=== PATIENT | female | born 1970 | race Caucasian/White ===

== ENCOUNTER 2023-06-22 08:56 | Outpatient (RCR) | payer BC, SELFPAY | END 2023-06-22 23:59 | disposition home or self-care (01) | LOC: RPT 08:56 | PROVIDERS: ATTENDING PHYSICIAN Orthopaedic Surgery; FAMILY PHYSICIAN Nurse Practitioner | DX: Z47.1 Aftercare following joint replacement surgery (principal); Z96.642 Presence of left artificial hip joint; Z73.6 Limitation of activities due to disability | CPT/HCPCS: 97110; 97112; 97140; 97161 ==

== ENCOUNTER 2023-07-24 15:52 | Outpatient (RCR) | payer BC, SELFPAY | END 2023-07-24 23:59 | disposition home or self-care (01) | LOC: RPT 15:52 | PROVIDERS: ATTENDING PHYSICIAN Orthopaedic Surgery; FAMILY PHYSICIAN Nurse Practitioner | DX: Z47.1 Aftercare following joint replacement surgery (principal); Z73.6 Limitation of activities due to disability; R26.89 Other abnormalities of gait and mobility; M62.81 Muscle weakness (generalized); M25.552 Pain in left hip; R25.2 Cramp and spasm; Z96.642 Presence of left artificial hip joint | CPT/HCPCS: 97110; 97112; 97140 ==

== ENCOUNTER 2023-08-23 14:57 | Outpatient (RCR) | payer BC, SELFPAY | END 2023-08-23 23:59 | disposition home or self-care (01) | LOC: RPT 14:57 | PROVIDERS: ATTENDING PHYSICIAN Orthopaedic Surgery; FAMILY PHYSICIAN Nurse Practitioner | DX: Z47.1 Aftercare following joint replacement surgery (principal); Z73.6 Limitation of activities due to disability; M25.552 Pain in left hip; R25.2 Cramp and spasm; R26.89 Other abnormalities of gait and mobility; Z96.642 Presence of left artificial hip joint | CPT/HCPCS: 97110; 97112; 97116; 97530 ==

== ENCOUNTER → 2023-10-09 15:08 | Outpatient (REF) | payer BC, SELFPAY ==
[2023-10-14 11:17] LABS: HPV, High Risk Not Detected; HPV, High Risk Source Cervical
== END ==
LOC: CPAP 15:08
PROVIDERS: ATTENDING PHYSICIAN Obstetrics & Gynecology Gynecology
DX: Z01.419 Encounter for gynecological examination (general) (routine) without abnormal findings (principal)
CPT/HCPCS: 87624

== ENCOUNTER → 2024-02-01 06:16 | Outpatient (REF) | payer BC, SELFPAY ==
[2024-02-01 07:10] LABS: % Basophils 0.7 % (0-2); % Eosinophils 4.3 % (0-6); % Immature Granulocytes 0.2 % (0-0.5); % Lymphocytes 34.4 % (20.5-51.1); % Neutrophils 52.4 % (42.2-75.2); Absolute Eosinophils 0.3 10^3/uL (0-0.7); Absolute Monocytes 0.5 10^3/uL (0.1-0.6); Absolute Neutrophils 3.1 10^3/uL (1.4-6.5); Hematocrit 40.6 % (37.0-47.0); Hemoglobin 14.2 g/dL (12.0-16.0); Mean Corpuscular Hgb 31.3 pg (27.0-31.0); Mean Corpuscular Volume 89.4 fL (81.0-99.0); Mean Platelet Volume 9.4 fL (7.4-10.4); Nucleated Red Blood Cells % 0 %; Platelet Count 217 10^3/uL (130-400); Red Blood Cell Count 4.54 10^6/uL (4.20-5.40); Red Cell Dist. Width 12.2 % (11.5-14.5); White Blood Cell Count 5.9 10^3/uL (4.8-10.8)
[2024-02-01 07:37] LABS: ALT (SGPT) 19 U/L (0-35); AST (SGOT) 29 U/L (14-36); Albumin 4.7 g/dl (3.5-5.0); Alkaline Phosphatase 91 U/L (38-126); Blood Urea Nitrogen 17 mg/dl (7-17); Calcium 10.4 mg/dl (8.4-10.2); Carbon Dioxide 31 mmol/L (22-30); Chloride 102 mmol/L (98-107); Glucose 80 mg/dl (70-99); HDL Cholesterol 70 mg/dl; LDL Cholesterol, Calculated 138 mg/dl; Potassium 4.5 mmol/L (3.5-5.1); Sodium 139 mmol/L (135-145); Total Bilirubin 1.1 mg/dl (0.2-1.3); Total Cholesterol 225 mg/dl (50-199); Triglyceride 85 mg/dl (10-149); Very Low Density Lipoprotein 17 mg/dl (0-30); eGFR > 60.00
[2024-02-01 07:49] LABS: Total Protein 7.6 g/dl (6.3-8.2)
[2024-02-01 08:14] LABS: TSH 3.25 uIU/ml (0.47-4.68)
[2024-02-01 08:58] LABS: Erythrocyte Sed Rate 10 mm/hour (0-20)
[2024-02-01 10:40] LABS: C-Reactive Protein < 5.00 mg/L (0.0-10.00)
== END ==
LOC: REG 06:16
PROVIDERS: ATTENDING PHYSICIAN Internal Medicine Gastroenterology; FAMILY PHYSICIAN Nurse Practitioner; REFERRING PHYSICIAN Internal Medicine
DX: K51.218 Ulcerative (chronic) proctitis with other complication (principal); Z00.00 Encounter for general adult medical examination without abnormal findings; E78.5 Hyperlipidemia, unspecified; R53.83 Other fatigue
CPT/HCPCS: 36415; 80053; 80061; 84443; 85025; 85652; 86140

== ENCOUNTER → 2024-02-11 08:07 | Outpatient (REF) | payer BC, SELFPAY ==
[2024-02-11 13:55] LABS: Calcium 10.1 mg/dl (8.4-10.2)
[2024-02-12 16:22] LABS: Intact PTH 53.7 pg/ml (13.6-85.8)
== END ==
LOC: REG 08:07
PROVIDERS: ATTENDING PHYSICIAN Nurse Practitioner
DX: E83.52 Hypercalcemia (principal)
CPT/HCPCS: 36415; 83970

== ENCOUNTER → 2024-02-18 06:31 | Day surgery (SDC) | payer BC, SELFPAY | LOC: GI 06:31 | PROVIDERS: ATTENDING PHYSICIAN Internal Medicine Gastroenterology | DX: K57.30 Diverticulosis of large intestine without perforation or abscess without bleeding (principal); K52.9 Noninfective gastroenteritis and colitis, unspecified; K51.914 Ulcerative colitis, unspecified with abscess; K51.50 Left sided colitis without complications | CPT/HCPCS: 45385; 45380; 88305 ==

== ENCOUNTER → 2024-03-19 14:46 | Outpatient (REF) | payer BC, SELFPAY | LOC: WDC 14:46 | PROVIDERS: ATTENDING PHYSICIAN Obstetrics & Gynecology Gynecology; FAMILY PHYSICIAN Nurse Practitioner | DX: Z12.31 Encounter for screening mammogram for malignant neoplasm of breast (principal); Z00.00 Encounter for general adult medical examination without abnormal findings | CPT/HCPCS: 77063; 77067; 77080 ==

== ENCOUNTER → 2024-10-14 15:19 | Outpatient (REF) | payer BC, SELFPAY ==
[2024-10-23 00:24] LABS: HPV, High Risk Not Detected; HPV, High Risk Source Cervical
== END ==
LOC: CPAP 15:19
PROVIDERS: ATTENDING PHYSICIAN Obstetrics & Gynecology Gynecology
DX: Z01.419 Encounter for gynecological examination (general) (routine) without abnormal findings (principal)
CPT/HCPCS: 87624